=== PATIENT | female | born 1960 | race Two or more races ===

== ENCOUNTER 2021-03-21 08:32 | Inpatient (IN) | payer MEDICAID, OTHER ==
[~2021-03-21] VITALS: Ht 157.5 cm; Wt 127.6 kg
[2021-03-21 09:36] LABS: Hematocrit 40.3 % (36.0-46.0); Hemoglobin 13.8 g/dL (12.2-16.2); Mean Corpuscular Hemoglobin 30.7 pg (28.0-32.0); Mean Corpuscular Hgb Conc. 34.2 g/dL (32.0-36.0); Mean Corpuscular Volume 89.7 fL (80.0-100.0); Red Cell Distribution Width 14.7 % (11.8-14.3)
[2021-03-21 09:39] LABS: Basophils % (manual) 0 (0.0-2.0); Blast Cells 0; Eosinophils % (manual) 0 (0-7); Metamyelocytes % 0; Myelocytes % 0; Promyelocytes % 0; Reactive Lymphocytes 0
[2021-03-21 09:54] LABS: Albumin 2.6 g/dL (3.4-5.0); Calcium 8.9 mg/dL (8.5-10.1); Potassium 3.9 mmol/L (3.5-5.1)
[2021-03-21] MEDS ORDERED: cefTRIAXone 1GM/50ML D5W 50 ML IV ONE (10:00)
[2021-03-21] MEDS ORDERED: DexAMETHasone SOD PHOS 10MG/1ML VIAL INJ IV ONE (10:00)
[2021-03-21] MEDS ORDERED: AZITHROMYCIN 500MG/ 250ML 250 ML IV ONE (10:00)
[2021-03-21 10:01] LABS: BUN/Creatinine Ratio 30.4; Bilirubin, Total 1.7 mg/dL (0.2-1.0); Total Protein 7.8 g/dL (6.4-8.2)
[2021-03-21 10:05] LABS: Urine Amorphous Crystal FEW /hpf (None Seen); Urine Bacteria NONE SEEN /hpf (None Seen); Urine Blood 1+ /uL (Negative); Urine Mucus FEW (None Seen); Urine Specific Gravity 1.027 (1.001-1.035); Urine WBC 2 /hpf (0 - 5)
[2021-03-21 10:44] LABS: INR 1.06 (0.9-1.15); Partial Thromboplastin Time 28.6 sec (23.6-33.0)
[2021-03-21 10:50] LABS: Lactic Acid w/Reflex 2.2 mmol/L (0.4-2.0)
[2021-03-21 11:13] LABS: Band Neutrophils % (manual) 40; Lymphocytes % (manual) 18 (10.0-50.0); Monocytes % (manual) 2 (0-12)
[2021-03-21] MEDS ORDERED: FUROSEMIDE 40 MG/4 ML VIAL IV ONE (12:15)
[2021-03-21] MEDS ORDERED: ENOXAPARIN SOD 120 MG/0.8 ML SYRINGE SC ONE (14:45)
[2021-03-21] MEDS ORDERED: NITROGLYCERIN 0.4 MG SL TAB SL PRN (15:15)
[2021-03-21] MEDS ORDERED: MORPHINE SULFATE INJECTION 2 MG/ML SYRG IV PRN (15:15)
[2021-03-21] MEDS ORDERED: ACETAMINOPHEN 500 MG TAB PO PRN (15:15)
[2021-03-21] MEDS ORDERED: ONDANSETRON HCL 4 MG/2 ML VIAL IV PRN (15:15)
[2021-03-21] MEDS ORDERED: DOCUSATE SOD 100 MG CAP PO PRN (15:15)
[2021-03-21] MEDS: HYDROcodone-ACET 5/325MG TAB PO PRN (16:29)
[2021-03-21] MEDS: MORPHINE SULFATE INJECTION 2 MG/ML SYRG IV PRN (17:54)
[2021-03-21] MEDS: ENOXAPARIN SOD 100 MG/1 ML SYRINGE SC SCH (22:20)
[2021-03-22] MEDS ORDERED: VANCOMYCIN PER PHARMACY 0 MG IV SCH (01:45)
[2021-03-22] MEDS ORDERED: VANCOMYCIN 1GM/250ML 250 ML IV ONE ×2 (02:00→14:00)
[2021-03-22] MEDS ORDERED: dilTIAZem 25 MG/5 ML VIAL IV ONE ×2 (04:35→04:45)
[2021-03-22] MEDS ORDERED: METOPROLOL SUCCINATE XL 50 MG TAB PO ONE (04:45)
[2021-03-22] MEDS ORDERED: FUROSEMIDE 40 MG/4 ML VIAL IV ONE (05:00)
[2021-03-22] MEDS ORDERED: dilTIAZem 125mg/125ml BAG KIT 125 ML IV ONE (05:34)
[2021-03-22] MEDS: dilTIAZem 125mg/125ml BAG KIT 100 ML IV SCH ×2 (05:48→22:41)
[2021-03-22 08:03] LABS: Basophils # (auto) 0 10 ^3/uL (0-0.2); Basophils % (auto) 0.1 % (0.0-2.0); Eosinophils # (auto) 0 10 ^3/uL (0-0.8); Hematocrit 39.1 % (36.0-46.0); Hemoglobin 13.4 g/dL (12.2-16.2); Lymphocytes # (auto) 0.7 10 ^3/uL (0.4-5.4); Lymphocytes % (auto) 7.8 % (10.0-50.0); Mean Corpuscular Hemoglobin 30.6 pg (28.0-32.0); Mean Corpuscular Hgb Conc. 34.2 g/dL (32.0-36.0); Mean Corpuscular Volume 89.7 fL (80.0-100.0); Monocytes # (auto) 0.7 10 ^3/uL (0-1.3); Monocytes % (auto) 7.6 % (0.0-12.0); Neutrophils % (auto) 84.5 % (37.0-80.0); Nucleated Red Blood Cells % 0.1 %; Red Blood Cells 4.36 10^6/uL (4.0-5.20); Red Cell Distribution Width 14.4 % (11.8-14.3); White Blood Cell 9.5 10^3/uL (4.4-10.8)
[2021-03-22 08:21] LABS: Albumin 2.3 g/dL (3.4-5.0); Calcium 8.9 mg/dL (8.5-10.1)
[2021-03-22] MEDS: cefTRIAXone 1GM/50ML D5W 50 ML IV SCH ×3 (08:21→11:28)
[2021-03-22 08:25] LABS: BUN/Creatinine Ratio 43.9
[2021-03-22] MEDS: ASPirin 81 mg TAB PO SCH (08:34)
[2021-03-22] MEDS: AZITHROMYCIN 500MG/ 250ML 250 ML IV SCH (08:42)
[2021-03-22] MEDS ORDERED: FUROSEMIDE 40 MG/4 ML VIAL IV SCH (10:00)
[2021-03-22] MEDS ORDERED: METOPROLOL SUCCINATE XL 50 MG TAB PO SCH (10:00)
[2021-03-22] MEDS: ENOXAPARIN SOD 100 MG/1 ML SYRINGE SC SCH ×2 (11:12→23:02)
[2021-03-22] MEDS: FUROSEMIDE 40 MG/4 ML VIAL IV SCH ×2 (12:17→17:55)
[2021-03-22] MEDS: IPRATROPIUM BROM 0.5 MG/2.5ML INH SOL NEB PRN (15:05)
[2021-03-22] MEDS: ALBUTEROL SULF 2.5 MG/0.5ML(0.5%) NEB SOLN NEB PRN (15:05)
[2021-03-22] MEDS ORDERED: METOPROLOL TARTRATE 25 MG TAB PO SCH (22:00)
[2021-03-22] MEDS: METOPROLOL TARTRATE 25 MG TAB PO SCH (23:02)
[2021-03-23 08:42] LABS: Basophils # (auto) 0 10 ^3/uL (0-0.2); Basophils % (auto) 0.1 % (0.0-2.0); Eosinophils # (auto) 0 10 ^3/uL (0-0.8); Hematocrit 38.9 % (36.0-46.0); Hemoglobin 12.8 g/dL (12.2-16.2); Lymphocytes # (auto) 1.2 10 ^3/uL (0.4-5.4); Lymphocytes % (auto) 7.9 % (10.0-50.0); Mean Corpuscular Hemoglobin 29.9 pg (28.0-32.0); Mean Corpuscular Volume 90.5 fL (80.0-100.0); Monocytes # (auto) 1.3 10 ^3/uL (0-1.3); Monocytes % (auto) 8.4 % (0.0-12.0); Neutrophils # (auto) 12.7 10 ^3/uL (1.6-8.6); Neutrophils % (auto) 83.6 % (37.0-80.0); Nucleated Red Blood Cells % 0.1 %; Red Cell Distribution Width 14.8 % (11.8-14.3); White Blood Cell 15.2 10^3/uL (4.4-10.8)
[2021-03-23 09:12] LABS: BUN/Creatinine Ratio 66.7; Calcium 8.6 mg/dL (8.5-10.1); Potassium 4.6 mmol/L (3.5-5.1)
[2021-03-23] MEDS: METOPROLOL TARTRATE 25 MG TAB PO SCH ×2 (10:31→22:54)
[2021-03-23] MEDS: AZITHROMYCIN 500MG/ 250ML 250 ML IV SCH (10:31)
[2021-03-23] MEDS: ASPirin 81 mg TAB PO SCH (10:31)
[2021-03-23] MEDS: ENOXAPARIN SOD 100 MG/1 ML SYRINGE SC SCH ×2 (10:32→22:53)
[2021-03-23] MEDS: VANCOMYCIN 1GM/250ML 250 ML IV SCH (17:52)
[2021-03-23 18:22] VITALS: BP 128/85
[2021-03-23] MEDS: HYDROcodone-ACET 5/325MG TAB PO PRN (23:00)
[2021-03-24] MEDS: VANCOMYCIN 1GM/250ML 250 ML IV SCH ×3 (03:06→18:17)
[2021-03-24 05:00] VITALS: BP 106/79
[2021-03-24 07:35] LABS: Basophils # (auto) 0 10 ^3/uL (0-0.2); Basophils % (auto) 0.2 % (0.0-2.0); Eosinophils # (auto) 0.1 10 ^3/uL (0-0.8); Eosinophils % (auto) 0.3 % (0.0-7.0); Hematocrit 39.6 % (36.0-46.0); Lymphocytes # (auto) 1.6 10 ^3/uL (0.4-5.4); Lymphocytes % (auto) 9.5 % (10.0-50.0); Mean Corpuscular Hemoglobin 29.3 pg (28.0-32.0); Mean Corpuscular Hgb Conc. 32.8 g/dL (32.0-36.0); Mean Corpuscular Volume 89.4 fL (80.0-100.0); Monocytes # (auto) 0.6 10 ^3/uL (0-1.3); Monocytes % (auto) 3.7 % (0.0-12.0); Neutrophils # (auto) 14.9 10 ^3/uL (1.6-8.6); Neutrophils % (auto) 86.3 % (37.0-80.0); Nucleated Red Blood Cells % 0.1 %; Red Blood Cells 4.43 10^6/uL (4.0-5.20); Red Cell Distribution Width 14.5 % (11.8-14.3); White Blood Cell 17.2 10^3/uL (4.4-10.8)
[2021-03-24 07:57] LABS: Potassium 4.9 mmol/L (3.5-5.1)
[2021-03-24 08:03] LABS: BUN/Creatinine Ratio 79.7
[2021-03-24 08:46] VITALS: BP 115/70
[2021-03-24] MEDS: AZITHROMYCIN 500MG/ 250ML 250 ML IV SCH (09:13)
[2021-03-24] MEDS: CEFTRIAXONE SODIUM 2 GM in D5W 5% 50 ML IV SCH (09:13)
[2021-03-24] MEDS: ENOXAPARIN SOD 100 MG/1 ML SYRINGE SC SCH ×2 (09:14→21:55)
[2021-03-24] MEDS: METOPROLOL TARTRATE 25 MG TAB PO SCH ×2 (09:16→21:47)
[2021-03-24] MEDS: ASPirin 81 mg TAB PO SCH (09:16)
[2021-03-24] MEDS: HYDROcodone-ACET 5/325MG TAB PO PRN (14:03)
[2021-03-24 17:00] VITALS: BP 118/82
[2021-03-24] MEDS: MORPHINE SULFATE INJECTION 2 MG/ML SYRG IV PRN (17:10)
[2021-03-24 21:30] VITALS: BP 106/78
[2021-03-25] MEDS: HYDROcodone-ACET 5/325MG TAB PO PRN ×2 (03:44→16:35)
[2021-03-25 04:00] VITALS: BP 116/69
[2021-03-25 05:42] LABS: Hematocrit 41.1 % (36.0-46.0); Hemoglobin 13.7 g/dL (12.2-16.2); Mean Corpuscular Hgb Conc. 33.3 g/dL (32.0-36.0); Mean Corpuscular Volume 90.1 fL (80.0-100.0); Red Blood Cells 4.57 10^6/uL (4.0-5.20); Red Cell Distribution Width 14.6 % (11.8-14.3); White Blood Cell 20.8 10^3/uL (4.4-10.8)
[2021-03-25 06:01] LABS: Calcium 8.2 mg/dL (8.5-10.1); Potassium 4.9 mmol/L (3.5-5.1)
[2021-03-25 06:31] LABS: Basophils % (manual) 0 (0.0-2.0); Blast Cells 0; Promyelocytes % 0; Reactive Lymphocytes 0
[2021-03-25 08:12] LABS: Band Neutrophils % (manual) 2; Eosinophils % (manual) 1 (0-7); Lymphocytes % (manual) 8 (10.0-50.0); Metamyelocytes % 1; Monocytes % (manual) 6 (0-12); Myelocytes % 2
[2021-03-25 09:00] VITALS: BP 124/83
[2021-03-25] MEDS: CEFTRIAXONE SODIUM 2 GM in D5W 5% 50 ML IV SCH (09:00)
[2021-03-25] MEDS: AZITHROMYCIN 500MG/ 250ML 250 ML IV SCH (09:06)
[2021-03-25] MEDS: ASPirin 81 mg TAB PO SCH (09:07)
[2021-03-25] MEDS: ENOXAPARIN SOD 100 MG/1 ML SYRINGE SC SCH ×2 (09:07→21:36)
[2021-03-25] MEDS: METOPROLOL TARTRATE 25 MG TAB PO SCH ×2 (09:34→22:39)
[2021-03-25] MEDS: VANCOMYCIN 1GM/250ML 250 ML IV SCH (12:00)
[2021-03-25 13:00] VITALS: BP 126/86
[2021-03-25] MEDS: IPRATROPIUM BROM 0.5 MG/2.5ML INH SOL NEB PRN (20:03)
[2021-03-25] MEDS: ALBUTEROL SULF 2.5 MG/0.5ML(0.5%) NEB SOLN NEB PRN (20:03)
[2021-03-25] MEDS ORDERED: dilTIAZem 25 MG/5 ML VIAL IV ONE (21:00)
[2021-03-25 22:00] VITALS: BP 108/72
[2021-03-26] MEDS ORDERED: AMIODARONE HCL 150 MG in D5W 5% 100 ML IV ONE (00:45)
[2021-03-26] MEDS ORDERED: AMIODARONE 450mg/250ml AE 250 ML IV SCH ×2 (01:00→07:00)
[2021-03-26] MEDS ORDERED: AMIODARONE HCL (50 MG/ ML) 3 ML VIAL IV ONE (01:07)
[2021-03-26] MEDS: MORPHINE SULFATE INJECTION 2 MG/ML SYRG IV PRN ×2 (03:53→12:25)
[2021-03-26 04:00] VITALS: BP 140/80
[2021-03-26] MEDS: ALBUTEROL SULF 2.5 MG/0.5ML(0.5%) NEB SOLN NEB PRN (04:06)
[2021-03-26] MEDS: IPRATROPIUM BROM 0.5 MG/2.5ML INH SOL NEB PRN (04:07)
[2021-03-26] MEDS: CEFTRIAXONE SODIUM 2 GM in D5W 5% 50 ML IV SCH (09:00)
[2021-03-26] MEDS: ASPirin 81 mg TAB PO SCH (09:32)
[2021-03-26] MEDS: ENOXAPARIN SOD 100 MG/1 ML SYRINGE SC SCH (09:33)
[2021-03-26] MEDS: AZITHROMYCIN 500MG/ 250ML 250 ML IV SCH (09:33)
[2021-03-26] MEDS: METOPROLOL TARTRATE 25 MG TAB PO SCH ×2 (09:34→22:07)
[2021-03-26 09:39] VITALS: BP 125/75
[2021-03-26] MEDS: VANCOMYCIN 1GM/250ML 250 ML IV SCH ×2 (12:26)
[2021-03-26 14:39] VITALS: BP 111/69
[2021-03-26 16:51] VITALS: BP 116/65
[2021-03-26 21:35] VITALS: BP 158/75
[2021-03-26 22:00] VITALS: BP 125/75
[2021-03-26] MEDS: ENOXAPARIN SOD 150 MG/1 ML SYRINGE SC SCH (22:08)
[2021-03-26] MEDS: AMIODARONE HCL 200 MG TAB PO SCH (22:11)
[2021-03-27] MEDS ORDERED: VANCOMYCIN 1GM/250ML 250 ML IV SCH (02:00)
[2021-03-27] MEDS: VANCOMYCIN 1GM/250ML 250 ML IV SCH ×2 (04:00→17:08)
[2021-03-27 05:00] VITALS: BP 102/71
[2021-03-27 07:36] LABS: Hemoglobin 10.9 g/dL (12.2-16.2); Mean Corpuscular Hemoglobin 29.9 pg (28.0-32.0); Mean Corpuscular Hgb Conc. 33.2 g/dL (32.0-36.0); Mean Corpuscular Volume 89.9 fL (80.0-100.0); Red Blood Cells 3.67 10^6/uL (4.0-5.20); Red Cell Distribution Width 14.3 % (11.8-14.3); White Blood Cell 26.8 10^3/uL (4.4-10.8)
[2021-03-27 07:43] LABS: Potassium 4.2 mmol/L (3.5-5.1)
[2021-03-27 08:05] LABS: BUN/Creatinine Ratio 35.4; Calcium 8.2 mg/dL (8.5-10.1); Magnesium 3.6 mg/dL (1.6-2.6); Phosphorus 3.7 mg/dL (2.5-4.90)
[2021-03-27 08:10] LABS: Basophils % (manual) 0 (0.0-2.0); Blast Cells 0; Myelocytes % 0; Promyelocytes % 0; Reactive Lymphocytes 0
[2021-03-27 09:00] VITALS: BP 153/79
[2021-03-27] MEDS: CEFTRIAXONE SODIUM 2 GM in D5W 5% 50 ML IV SCH (09:00)
[2021-03-27] MEDS: AZITHROMYCIN 500MG/ 250ML 250 ML IV SCH (09:03)
[2021-03-27] MEDS: ASPirin 81 mg TAB PO SCH (09:04)
[2021-03-27] MEDS: ENOXAPARIN SOD 150 MG/1 ML SYRINGE SC SCH ×2 (09:04→21:15)
[2021-03-27 09:08] LABS: Band Neutrophils % (manual) 11; Eosinophils % (manual) 1 (0-7); Lymphocytes % (manual) 7 (10.0-50.0); Metamyelocytes % 1; Monocytes % (manual) 3 (0-12)
[2021-03-27] MEDS: AMIODARONE HCL 200 MG TAB PO SCH ×2 (09:36→21:14)
[2021-03-27] MEDS: METOPROLOL TARTRATE 25 MG TAB PO SCH ×2 (09:36→21:14)
[2021-03-27 13:00] VITALS: BP 137/75
[2021-03-27 17:00] VITALS: BP 114/67
[2021-03-27 20:00] VITALS: BP 137/60
[2021-03-27 22:00] VITALS: BP 137/60
[2021-03-28 05:00] VITALS: BP 97/57
[2021-03-28] MEDS: VANCOMYCIN 1GM/250ML 250 ML IV SCH ×2 (08:35→22:03)
[2021-03-28] MEDS: AMIODARONE HCL 200 MG TAB PO SCH ×2 (08:35→22:04)
[2021-03-28] MEDS: ASPirin 81 mg TAB PO SCH (08:35)
[2021-03-28] MEDS: ENOXAPARIN SOD 150 MG/1 ML SYRINGE SC SCH ×2 (08:36→22:02)
[2021-03-28] MEDS: METOPROLOL TARTRATE 25 MG TAB PO SCH ×2 (08:36→22:04)
[2021-03-28] MEDS: CEFTRIAXONE SODIUM 2 GM in D5W 5% 50 ML IV SCH (10:51)
[2021-03-28 13:00] VITALS: BP 96/75
[2021-03-28] MEDS ORDERED: METOPROLOL TARTRATE 1MG/1ML-5ML VIAL IV PRN (14:30)
[2021-03-28 17:00] VITALS: BP 152/61
[2021-03-28 20:00] VITALS: BP 150/68
[2021-03-28 22:00] VITALS: BP 150/68
[2021-03-29 05:00] VITALS: BP 131/60
[2021-03-29 09:00] VITALS: BP 117/41
[2021-03-29] MEDS: CEFTRIAXONE SODIUM 2 GM in D5W 5% 50 ML IV SCH (09:14)
[2021-03-29] MEDS: ASPirin 81 mg TAB PO SCH (09:14)
[2021-03-29] MEDS: SILDENAFIL CITRATE 20 MG TAB PO SCH ×3 (09:14→22:28)
[2021-03-29] MEDS: AMIODARONE HCL 200 MG TAB PO SCH ×2 (09:15→22:30)
[2021-03-29] MEDS: ENOXAPARIN SOD 150 MG/1 ML SYRINGE SC SCH ×2 (09:16→22:28)
[2021-03-29] MEDS: METOPROLOL TARTRATE 25 MG TAB PO SCH ×2 (10:53→22:29)
[2021-03-29] MEDS: VANCOMYCIN 1GM/250ML 250 ML IV SCH (14:26)
[2021-03-29 17:00] VITALS: BP 101/55
[2021-03-29 20:00] VITALS: BP 123/51
[2021-03-30] MEDS: VANCOMYCIN 1GM/250ML 250 ML IV SCH ×2 (03:31→16:13)
[2021-03-30 04:00] VITALS: BP 95/48
[2021-03-30 08:06] LABS: Eosinophils # (auto) 0.3 10 ^3/uL (0-0.8); Eosinophils % (auto) 1.3 % (0.0-7.0); Hematocrit 23.1 % (36.0-46.0); Lymphocytes # (auto) 1.7 10 ^3/uL (0.4-5.4); White Blood Cell 21.5 10^3/uL (4.4-10.8)
[2021-03-30 08:07] LABS: Calcium 8.1 mg/dL (8.5-10.1); Magnesium 2.9 mg/dL (1.6-2.6); Potassium 3.9 mmol/L (3.5-5.1)
[2021-03-30 08:08] LABS: Basophils # (auto) 0.1 10 ^3/uL (0-0.2); Basophils % (auto) 0.3 % (0.0-2.0); Hemoglobin 7.5 g/dL (12.2-16.2); Mean Corpuscular Hemoglobin 29.5 pg (28.0-32.0); Mean Corpuscular Hgb Conc. 32.7 g/dL (32.0-36.0); Mean Corpuscular Volume 90.2 fL (80.0-100.0); Monocytes # (auto) 1.7 10 ^3/uL (0-1.3); Monocytes % (auto) 7.8 % (0.0-12.0); Neutrophils # (auto) 17.7 10 ^3/uL (1.6-8.6); Neutrophils % (auto) 82.6 % (37.0-80.0); Nucleated Red Blood Cells % 0.1 %; Red Blood Cells 2.56 10^6/uL (4.0-5.20); Red Cell Distribution Width 14.8 % (11.8-14.3)
[2021-03-30 08:11] LABS: BUN/Creatinine Ratio 27.6; Phosphorus 2.8 mg/dL (2.5-4.90)
[2021-03-30] MEDS: SILDENAFIL CITRATE 20 MG TAB PO SCH ×3 (09:47→20:23)
[2021-03-30] MEDS: CEFTRIAXONE SODIUM 2 GM in D5W 5% 50 ML IV SCH (09:47)
[2021-03-30] MEDS: METOPROLOL TARTRATE 25 MG TAB PO SCH ×2 (09:48→22:00)
[2021-03-30] MEDS: AMIODARONE HCL 200 MG TAB PO SCH ×2 (09:48→21:59)
[2021-03-30] MEDS: PANTOPRAZOLE 40 MG/10 ML VIAL INJ IV SCH ×2 (12:16→21:58)
[2021-03-30] MEDS ORDERED: IOHEXOL 350 MG/ML 100ML IJ ONE (13:26)
[2021-03-30 20:00] VITALS: BP 123/51
[2021-03-30 22:00] VITALS: BP 119/57
[2021-03-31 05:00] VITALS: BP 114/50
[2021-03-31 06:14] LABS: Basophils # (auto) 0 10 ^3/uL (0-0.2); Basophils % (auto) 0.2 % (0.0-2.0); Eosinophils % (auto) 1.2 % (0.0-7.0)
[2021-03-31] MEDS: VANCOMYCIN 1GM/250ML 250 ML IV SCH (06:17)
[2021-03-31 06:18] LABS: Eosinophils # (auto) 0.2 10 ^3/uL (0-0.8); Hematocrit 20.7 % (36.0-46.0); Lymphocytes # (auto) 1.3 10 ^3/uL (0.4-5.4); Lymphocytes % (auto) 6.2 % (10.0-50.0); Mean Corpuscular Hemoglobin 30.3 pg (28.0-32.0); Mean Corpuscular Hgb Conc. 33.7 g/dL (32.0-36.0); Mean Corpuscular Volume 89.9 fL (80.0-100.0); Monocytes # (auto) 1.9 10 ^3/uL (0-1.3); Monocytes % (auto) 9.3 % (0.0-12.0); Neutrophils # (auto) 17.2 10 ^3/uL (1.6-8.6); Neutrophils % (auto) 83.1 % (37.0-80.0); Red Blood Cells 2.31 10^6/uL (4.0-5.20); White Blood Cell 20.7 10^3/uL (4.4-10.8)
[2021-03-31 06:33] LABS: Calcium 7.9 mg/dL (8.5-10.1); Potassium 3.9 mmol/L (3.5-5.1)
[2021-03-31 06:36] LABS: BUN/Creatinine Ratio 22.4
[2021-03-31] MEDS: SILDENAFIL CITRATE 20 MG TAB PO SCH ×2 (08:42→14:17)
[2021-03-31] MEDS: CEFTRIAXONE SODIUM 2 GM in D5W 5% 50 ML IV SCH (08:42)
[2021-03-31] MEDS: METOPROLOL TARTRATE 25 MG TAB PO SCH (08:43)
[2021-03-31] MEDS: PANTOPRAZOLE 40 MG/10 ML VIAL INJ IV SCH (08:43)
[2021-03-31] MEDS: AMIODARONE HCL 200 MG TAB PO SCH (08:43)
[2021-03-31 09:15] VITALS: BP 133/46
[2021-03-31 10:41] LABS: Hematocrit 26.4 % (36.0-46.0); Hemoglobin 8.8 g/dL (12.2-16.2)
[2021-03-31 12:34] VITALS: BP 140/54
[2021-03-31 17:24] VITALS: BP 127/41
== END 2021-03-31 20:50 | DRG 720 ==
LOC: ER 08:32 → EDBD 08:32 → TELE 15:15 → TELE-WESTW 03-23 14:35
PROVIDERS: ADMIT Nurse Practitioner Acute Care; ATTEND Internal Medicine
DX: A41.9 Sepsis, unspecified organism (principal); J96.01 Acute respiratory failure with hypoxia; N17.0 Acute kidney failure with tubular necrosis; I26.99 Other pulmonary embolism without acute cor pulmonale; I21.4 Non-ST elevation (NSTEMI) myocardial infarction; D68.59 Other primary thrombophilia; J18.9 Pneumonia, unspecified organism; I42.9 Cardiomyopathy, unspecified; I50.31 Acute diastolic (congestive) heart failure; I11.0 Hypertensive heart disease with heart failure; I48.91 Unspecified atrial fibrillation; R31.9 Hematuria, unspecified; G62.9 Polyneuropathy, unspecified; S36.81XA Injury of peritoneum, initial encounter; E66.9 Obesity, unspecified; Z20.822 Contact with and (suspected) exposure to COVID-19; G89.29 Other chronic pain; M54.9 Dorsalgia, unspecified; X58.XXXA Exposure to other specified factors, initial encounter; Y93.89 Activity, other specified; Y92.89 Other specified places as the place of occurrence of the external cause; Z74.01 Bed confinement status; Y99.8 Other external cause status
CPT/HCPCS: 36415; 36600; 71045; 71250; 71260; 74177; 78582; 80048; 80053; 80202; 81001; 82728; 82805; 83605; 83735; 83880; 84100; 84439; 84443; 84484; 85007; 85014; 85018; 85025; 85027; 85379; 85610; 85730; 86141; 87040; 87070; 87077; 87186; 87205; 87426; 93005; 93306; 93970; 94640; 96365; 96367; 96372; 96375; 97110; 97116; 97163; 97530; 99291; C9113; G0378; J0696; J1100; J7060